=== PATIENT | female | born 1985 | race Caucasian/White ===

== ENCOUNTER 2018-04-04 05:43 | Inpatient (IN) | payer OTHER ==
[~2018-04-04] VITALS: Ht 165.1 cm; Wt 88.0 kg
[~2018-04-04 05:43] MED LIST: ADULT ASPIRIN81 MG PO; NOVOLIN N100 UNITS/ SC; PRENATABS RX T1 EACH PO; UNISOM25 MG PO
[2018-04-04 06:17] VITALS: BP 93/55
[2018-04-04 06:29] VITALS: BP 126/84
[2018-04-04 06:34] LABS: AMPHETAMINE NEGATIVE (500 ng/mL); BARBITURATES NEGATIVE (200 ng/mL); BENZODIAZEPINES NEGATIVE (150 ng/mL); BUPRENORPHINE NEGATIVE (10 ng/mL); COCAINE NEGATIVE (150 ng/mL); METHADONE NEGATIVE (200 ng/mL); METHAMPHETAMINE NEGATIVE (500 ng/mL); OPIATES (MORPHINE) NEGATIVE (100 ng/mL); OXYCODONE NEGATIVE (100 ng/mL); PHENCYCLIDINE NEGATIVE (25 ng/mL); PROPOXYPHENE NEGATIVE (300 ng/mL); THC CANNABINOIDS NEGATIVE (50 ng/mL); TRICYCLIC ANTIDEPRESSANTS NEGATIVE (300 ng/mL)
[2018-04-04] MEDS ORDERED: MOTRIN800 MG PO (07:23)
[2018-04-04] MEDS ORDERED: PERCOCET 5/31 TABLET PO (07:23)
[2018-04-04 10:33] VITALS: BP 117/73
[2018-04-04 11:53] VITALS: BP 120/83
[2018-04-04 13:56] VITALS: BP 114/69
[2018-04-04 15:12] VITALS: BP 129/79
[2018-04-05 05:54] LABS: BASOPHIL (%) 0.1 % (0-1); EOSINOPHIL (%) 0.7 % (0-5); EOSINOPHIL COUNT 0.1 K/uL (0-0.3); HEMATOCRIT 33.8 % (36.0-46.0); IMMATURE GRANULOCYTE (%) 0.3 % (0.0-0.7); LYMPHOCYTE COUNT 1.5 K/uL (1.0-2.8); MCH 29.6 PG (29.0-34.0); MCHC 32.5 G/DL (30.0-36.0); MCV 90.9 FL (83-99); MONOCYTE (%) 6.1 % (3-12); MONOCYTE COUNT 0.6 K/uL (0-0.8); NEUTROPHIL (%) 75.8 % (45-76); NEUTROPHIL COUNT 6.8 K/uL (1.8-6.4); PLATELET COUNT 108 K/uL (156-360); RBC DIS.WIDTH-CV 16.3 % (11.8-14.6); RBC DIS.WIDTH-SD 53.4 % (39-53); RED BLOOD COUNT 3.72 M/uL (3.80-5.20)
[2018-04-05 06:50] VITALS: BP 110/68
[2018-04-05 11:15] VITALS: BP 139/92
[2018-04-05 12:45] VITALS: BP 124/78
[2018-04-05 15:10] VITALS: BP 137/85
[2018-04-06 07:30] VITALS: BP 128/85
[2018-04-06 10:34] LABS: BASOPHIL (%) 0.2 % (0-1); EOSINOPHIL (%) 1.5 % (0-5); EOSINOPHIL COUNT 0.1 K/uL (0-0.3); HEMATOCRIT 33.7 % (36.0-46.0); HEMOGLOBIN 11.2 G/DL (11.9-15.5); IMMATURE GRANULOCYTE (%) 0.4 % (0.0-0.7); LYMPHOCYTE (%) 19.9 % (15-42); LYMPHOCYTE COUNT 1.6 K/uL (1.0-2.8); MCH 30.2 PG (29.0-34.0); MCHC 33.2 G/DL (30.0-36.0); MCV 90.8 FL (83-99); MONOCYTE (%) 4.3 % (3-12); MONOCYTE COUNT 0.4 K/uL (0-0.8); NEUTROPHIL (%) 73.7 % (45-76); NEUTROPHIL COUNT 6.1 K/uL (1.8-6.4); RBC DIS.WIDTH-SD 52.4 % (39-53); RED BLOOD COUNT 3.71 M/uL (3.80-5.20); WHITE BLOOD COUNT 8.2 K/uL (4.1-10.2)
[2018-04-06 10:47] LABS: PLATELET COUNT 146 K/uL (156-360)
[2018-04-06 10:51] LABS: ALBUMIN 3.3 G/DL (3.2-4.8); ALT (GPT) 13 IU/L (3-49); AST (GOT) 18 IU/L (2-34); CHLORIDE 109 MEQ/L (99-109); CREATININE 0.6 MG/DL (0.6-1.3); GFR ESTIMATE (CALCULATED) > 59 mL/min/; GLUCOSE 97 mg/dL (70-99); POTASSIUM 4.1 MEQ/L (3.7-5.4); SODIUM 142 MEQ/L (136-147); TOTAL PROTEIN 5.6 G/DL (6.4-8.3); UREA NITROGEN (BUN) 7 mg/dL (9-23)
[2018-04-06 10:54] LABS: ALKALINE PHOSPHATASE 118 IU/L (3-129); TOTAL BILIRUBIN 0.5 MG/DL (0.0-1.0)
[2018-04-06 15:45] VITALS: BP 134/82
[2018-04-06 23:00] VITALS: BP 125/82
[2018-04-07 07:36] VITALS: BP 133/89
[2018-04-07 14:56] VITALS: BP 130/82
== END 2018-04-07 19:25 | disposition home or self-care (01) | DRG 765 ==
LOC: 2SOUTH → 2WEST 05:43 → 2SOUTH 14:06 → 2WEST 04-07 19:25
PROVIDERS: Obstetrics & Gynecology
PROC: 10D00Z1 Extraction of Products of Conception, Low, Open Approach (ICD-10-PCS; principal; 2018-04-04)
PROC: 0UB70ZZ Excision of Bilateral Fallopian Tubes, Open Approach (ICD-10-PCS; principal; 2018-04-04)
DX: O34.211 Maternal care for low transverse scar from previous cesarean delivery (principal); Z30.2 Encounter for sterilization; O99.02 Anemia complicating childbirth; D62 Acute posthemorrhagic anemia; O24.424 Gestational diabetes mellitus in childbirth, insulin controlled; O99.214 Obesity complicating childbirth; E66.9 Obesity, unspecified; Z68.30 Body mass index [BMI] 30.0-30.9, adult; Z79.82 Long term (current) use of aspirin; Z79.4 Long term (current) use of insulin; Z3A.39 39 weeks gestation of pregnancy; Z37.0 Single live birth
CPT/HCPCS: 36415; 80053; 82948; 85025; 86850; 86900; 86901; 87086; 88302; J0690; J2274; J3010; J7120; S0020